=== PATIENT | female | born 1995 | race Caucasian/White ===

== ENCOUNTER 2019-11-25 02:18 | Observation (INO) ==
[2019-11-25 02:57] LABS: Basophils # (auto) 0.02 K/uL (0-0.2); Basophils % (auto) 0.2 %; Eosinophils # (auto) 0.23 K/uL (0-0.5); Eosinophils % (auto) 1.9 %; Hemoglobin 11.4 g/dL (12.0-16.0); Immature Granulocytes # (auto) 0.08 K/uL (0.00-0.02); Immature Granulocytes % (auto) 0.7 %; Lymphocytes # (auto) 2.04 K/uL (1.2-3.4); Lymphocytes % (auto) 17.1 %; Mean Corpuscular Hemoglobin 30.8 pg (25-34); Mean Corpuscular Hgb Conc 32.6 g/dL (32-36); Mean Corpuscular Volume 94.6 fL (80-100); Mean Platelet Volume 10.3 fL (7.4-10.4); Monocytes # (auto) 0.62 K/uL (0.11-0.59); Monocytes % (auto) 5.2 %; Neutrophils # (auto) 8.94 K/uL (1.4-6.5); Neutrophils % (auto) 74.9 %; Platelet Count 332 K/uL (130-400); RDW Coefficient of Variation 13.1 % (11.5-14.5); RDW Standard Deviation 45.3 fL (36.4-46.3); White Blood Count 11.93 K/uL (4.8-10.8)
[2019-11-25 03:13] LABS: Alanine Aminotransferase 23 U/L (12-78); Albumin Level 3.2 gm/dl (3.4-5.0); Aspartate Aminotransferase 14 U/L (15-37); BUN Creatinine Ratio 29.5 (10-20); Blood Urea Nitrogen 21 mg/dl (7-18); Calcium 8.2 mg/dl (8.5-10.1); Carbon Dioxide 27 mmol/L (21-32); Chloride 115 mmol/L (98-107); Creatinine Clr Calc Pharmacy 111.8 ml/min; Est GFR (African American) 134.9; Est GFR (Non-African American) 116.4; Glucose 97 mg/dl (70-99); Potassium 3.7 mmol/L (3.5-5.1); Sodium 146 mmol/L (136-145)
[2019-11-25 03:16] LABS: Alkaline Phosphatase 116 U/L (45-117); Bilirubin,Total < 0.1 mg/dl (0.2-1); Globulin 3.2 gm/dl (2.5-4.0); Total Protein 6.4 gm/dl (6.4-8.2)
[2019-11-25 03:20] LABS: Pregnancy Test, Urine Negative (Negative)
[2019-11-25 03:36] LABS: Amphetamines+Metham, Urine Neg (Neg); Barbiturates, Urine Neg (Neg); Benzodiazepine, Urine Neg (Neg); Cocaine, Urine Neg (Neg); MDMA (Ecstacy), Urine Neg (Neg); Methadone, Urine Neg (Neg); Opiate, Urine Neg (Neg); Phencyclidine, Urine Neg (Neg)
--- NOTE | 2019-11-25 03:52 | Emergency Department Note ---
Impression & Plan Drug overdose ED Provider Note NAME: KARLA VELA AGE: 24 SEX: F ARRIVES VIA: Ambulance INFORMANT: EMS; patient's father ED PROVIDER(S): Roberta Caputo DO CHIEF COMPLAINT: Overdose PLAN: Disposition: Admitted to the [facility] service Condition: Stable MEDICAL DECISION MAKING: This is a 24-year-old female patient found unresponsive with snoring respirations on the side of the road. Police administered intranasal Narcan and the patient became more responsive. She had urinated herself. The patient was transported here by EMS. Patient's father arrived here in the emergency department stating that he knew that the patient had been abusing Adderall but was unaware that she was abusing other drugs. 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 However, urine tox screen was negative except for marijuana. After multiple attempts, the patient would not wake up enough to remain coherent for any type of discussion or potential discharge. The case was discussed with the [facility] and they will evaluate for further management. Triage Nursing notes reviewed and agree them. Additional history obtained from EMS and the patient's father Prior medical records reviewed Vital Signs: reviewed and unremarkable Differential diagnosis: Seizure, drug overdose, alcohol intoxication, suicide attempt Diagnostics interpreted by me: ECG: Sinus bradycardia at 57. There is no signs of ischemia. There is no ST segment elevation. There is no ectopy Cardiac Monitoring: Normal sinus rhythm at 52 Laboratory studies: See below HPI: 24/F arrives for evaluation of unresponsiveness. This is a 24-year-old female patient who was found in her vehicle unresponsive by police. She was found to have snoring respirations. They administered intranasal Narcan and she became more responsive and combative. She had urinated herself. Upon EMS arrival, she was barely able to communicate. Police noted tramadol, Ambien, gabapentin, baclofen, and Excedrin in her possession. The patient remained hemodynamically stable for transport for EMS. 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 He also told me that approximately 1 week ago she began to hang out with a girl whose boyfriend recently from an overdose of fentanyl. ROS: Unable to obtain because the patient was incoherent PAST MEDICAL HISTORY:ADHD, depression, GERD PAST SURGICAL HISTORY:None FAMILY HISTORY:Unknown-the patient was unable to answer questions as she was not coherent. SOCIAL HISTORY:Unable to obtain-the patient was not coherent enough to answer questions. 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 HOME MEDICATIONS:See list ALLERGIES:None VITALS:See Below PHYSICAL EXAMINATION: General: The patient was agitated with any type of communication or touch on exam but would fall asleep quickly if left alone. HEENT: Head - normocephalic and atraumatic Pupils are equal, round, and reactive to light. Extraocular eye muscles are intact, and sclera are anicteric. Nose - moist nasal mucosa without discharge. Mouth - moist buccal mucosa. Oropharynx is nonerythematous and there is no tonsillar exudate or edema noted. Neck: Supple; no cervical lymphadenopathy or thyromegaly Heart: Regular rate and rhythm. There is a normal S1 and S2 with no murmurs, clicks, or gallops appreciated. Lungs: Clear to auscultation bilaterally with no wheezes, rales, or rhonchi. Abdomen: Soft, completely nontender, nondistended, with good bowel sounds. There are no palpable pulsatile masses or hepatosplenomegaly. There is no guarding, rigidity, or rebound noted. Extremities: No evidence of cyanosis, clubbing, or edema. There are easily palpable peripheral pulses. Skin: warm and dry with good turgor and no rashes. ED COURSE: The patient was evaluated and A2. A complete history and physical was performed. An order was placed for continuous cardiac monitoring. The patient was in a normal sinus rhythm. A twelve-lead EKG was obtained. Labs were drawn as above. 0340: I spoke with the patient's father at the bedside. We attempted to wake the patient again and were unsuccessful keeping her coherent enough to answer questions appropriately. Roberta Caputo, Past Med/Surg History Social History Smoking Status: Current every day smoker Feels Safe at Home: Yes Allergies Allergies Allergy/AdvReac Type Severity Reaction Status Date / Time No Known Allergies Allergy Unverified 09/29/18 09:15 Home Meds Home Medications Medication Instructions Recorded Confirmed drospirenone-ethinyl estradiol 1 tab PO QAM 09/29/18 11/25/19 [Gianvi (28)] dextroamphetamine-amphetamine 20 mg PO TID 11/25/19 11/25/19 [Adderall] escitalopram oxalate [Lexapro] 10 mg PO UD 11/25/19 11/25/19 omeprazole 40 mg PO DAILY 11/25/19 11/25/19 vilazodone [Viibryd] 20 mg PO BID 11/25/19 11/25/19 Results & Data (ED) Vital Signs Vital Signs - 24 hr 11/25/19 02:06 11/25/19 02:29 11/25/19 04:06 Temperature 36.6 C Temperature Source Oral Pulse Rate 77 Pulse Rate [Apical] 52 L Pulse Rhythm Regular Pulse Rhythm [Apical] Regular Pulse Strength Normal Pulse Strength [Apical] Normal Respiratory Rate 18 18 Respiratory Effort / Characteristics Non-Labored Respiratory Depth Normal Respiratory Pattern Regular Blood Pressure 127/92 Blood Pressure [Right Arm] 127/78 Blood Pressure Mean 103 Blood Pressure Mean [Right Arm] 94 Blood Pressure Position Lying Blood Pressure Position [Right Arm] Lying Pulse Oximetry 99 99 97 Oxygen Delivery Method Room Air Room Air Room Air Sepsis Recent Fever Within 48 Hours No Sepsis New/Unexplained Change in Mental Status No Sepsis Action Taken by Nursing No Action Required Laboratory Data Result diagrams: 11/25/19 02:45 11/25/19 02:45 Lab Results 11/25/19 11/25/19 11/25/19 Range/Units 02:40 02:40 02:45 WBC 11.93 H (4.8-10.8) K/uL RBC 3.70 L (4.2-5.4) M/uL Hgb 11.4 L (12.0-16.0) g/dL Hct 35.0 L (37-47) % MCV 94.6 (80-100) fL MCH 30.8 (25-34) pg MCHC 32.6 (32-36) g/dL RDW Std Deviation 45.3 (36.4-46.3) fL RDW Coeff of Kavita 13.1 (11.5-14.5) % Plt Count 332 (130-400) K/uL MPV 10.3 (7.4-10.4) fL Immature Gran % (Auto) 0.7 % Neut % (Auto) 74.9 % Lymph % (Auto) 17.1 % Limestone % (Auto) 5.2 % Eos % (Auto) 1.9 % Baso % (Auto) 0.2 % Neut # (Auto) 8.94 H (1.4-6.5) K/uL Lymph # (Auto) 2.04 (1.2-3.4) K/uL Limestone # (Auto) 0.62 H (0.11-0.59) K/uL Eos # (Auto) 0.23 (0-0.5) K/uL Baso # (Auto) 0.02 (0-0.2) K/uL Immature Gran # (Auto) 0.08 H (0.00-0.02) K/uL Sodium (136-145) mmol/L Potassium (3.5-5.1) mmol/L Chloride (98-107) mmol/L Carbon Dioxide (21-32) mmol/L Anion Gap (3-11) BUN (7-18) mg/dl Creatinine (0.6-1.2) mg/dl Est Cr Clr Drug Dosing ml/min Est GFR ( Amer) Est GFR (Non-Af Amer) BUN/Creatinine Ratio (10-20) Glucose (70-99) mg/dl Calcium (8.5-10.1) mg/dl Magnesium (1.8-2.4) mg/dl Total Bilirubin (0.2-1) mg/dl AST (15-37) U/L ALT (12-78) U/L Alkaline Phosphatase (45-117) U/L Total Protein (6.4-8.2) gm/dl Albumin (3.4-5.0) gm/dl Globulin (2.5-4.0) gm/dl Albumin/Globulin Ratio (0.9-2) TSH (0.300-4.500) uIu/ml Free T4 (0.8-1.6) ng/dl Urine Test Negative (Negative) Salicylates (2.8-20) mg/dl Urine Opiates Screen Neg (Neg) Ur Methadone, Qual Neg (Neg) Acetaminophen (10-30) ug/ml Urine Barbiturates Neg (Neg) Ur Phencyclidine (PCP) Neg (Neg) U Amphetamin/Meth Scrn Neg (Neg) MDMA (Ecstasy) Screen Neg (Neg) U Benzodiazepines Scrn Neg (Neg) Ur Cocaine Metabolite Neg (Neg) U Marijuana (THC) Screen Pos H (Neg) Ethyl Alcohol mg/dL (0-3) mg/dl 11/25/19 11/25/19 11/25/19 Range/Units 02:45 02:46 04:16 WBC (4.8-10.8) K/uL RBC (4.2-5.4) M/uL Hgb (12.0-16.0) g/dL Hct (37-47) % MCV (80-100) fL MCH (25-34) pg MCHC (32-36) g/dL RDW Std Deviation (36.4-46.3) fL RDW Coeff of Kavita (11.5-14.5) % Plt Count (130-400) K/uL MPV (7.4-10.4) fL Immature Gran % (Auto) % Neut % (Auto) % Lymph % (Auto) % [place] % (Auto) % Eos % (Auto) % Baso % (Auto) % Neut # (Auto) (1.4-6.5) K/uL Lymph # (Auto) (1.2-3.4) K/uL Limestone # (Auto) (0.11-0.59) K/uL Eos # (Auto) (0-0.5) K/uL Baso # (Auto) (0-0.2) K/uL Immature Gran # (Auto) (0.00-0.02) K/uL Sodium 146 H (136-145) mmol/L Potassium 3.7 (3.5-5.1) mmol/L Chloride 115 H (98-107) mmol/L Carbon Dioxide 27 (21-32) mmol/L Anion Gap 4.0 (3-11) BUN 21 H (7-18) mg/dl Creatinine 0.72 (0.6-1.2) mg/dl Est Cr Clr Drug Dosing 111.8 ml/min Est GFR ( Amer) 134.9 Est GFR (Non-Af Amer) 116.4 BUN/Creatinine Ratio 29.5 H (10-20) Glucose 97 (70-99) mg/dl Calcium 8.2 L (8.5-10.1) mg/dl Magnesium 2.1 (1.8-2.4) mg/dl Total Bilirubin < 0.1 L (0.2-1) mg/dl AST 14 L (15-37) U/L ALT 23 (12-78) U/L Alkaline Phosphatase 116 (45-117) U/L Total Protein 6.4 (6.4-8.2) gm/dl Albumin 3.2 L (3.4-5.0) gm/dl Globulin 3.2 (2.5-4.0) gm/dl Albumin/Globulin Ratio 1.0 (0.9-2) TSH 0.112 L (0.300-4.500) uIu/ml Free T4 0.70 L (0.8-1.6) ng/dl Urine Test (Negative) Salicylates < 1.7 L (2.8-20) mg/dl Urine Opiates Screen (Neg) Ur Methadone, Qual (Neg) Acetaminophen < 2 L (10-30) ug/ml Urine Barbiturates (Neg) Ur Phencyclidine (PCP) (Neg) U Amphetamin/Meth Scrn (Neg) MDMA (Ecstasy) Screen (Neg) U Benzodiazepines Scrn (Neg) Ur Cocaine Metabolite (Neg) U Marijuana (THC) Screen (Neg) Ethyl Alcohol mg/dL < 3.0 (0-3) mg/dl Administered Medications Parenteral Electrolytes (Normosol-R) 1,000 mls @ 999 mls/hr IV .Q1H1M ONE Stop: 11/25/19 06:17 Last Admin: 11/25/19 05:30 Dose: 999 mls/hr Documented by: [id number] Discontinued Medications Naloxone HCl (Naloxone Hcl 0.4 Mg/1 Ml Vial/Carp) 0.4 mg IV NOW STA Stop: 11/25/19 05:17 Last Admin: 11/25/19 05:30 Dose: 0.4 mg Documented by: [id number] Discharge Plan Visit Data Chief Complaint: Overdose (Accidental) Stated Complaint: OVERDOSE ED Provider: Roberta Caputo Discharge Problem: Drug overdose Forms Stand Alone Forms: My [facility] Prescriptions Prescriptions: No Action drospirenone-ethinyl estradiol [Gianvi (28)] 3-0.02 mg Tablet 1 tab PO QAM RF: 0 dextroamphetamine-amphetamine [Adderall] 20 mg tablet 20 mg PO TID RF: 0 Viibryd 20 mg tablet 20 mg PO BID RF: 0 omeprazole 40 mg capsule,delayed release(DR/EC) 40 mg PO DAILY RF: 0 escitalopram oxalate [Lexapro] 10 mg tablet 10 mg PO UD RF: 0 Discharge Problem: Drug overdose Qualifiers: Encounter type: initial encounter Injury intent: undetermined intent Qualified Code(s): T50.904A - Poisoning by unspecified drugs, medicaments and biological substances, undetermined, initial encounter
[2019-11-25] MEDS ORDERED: NALOXONE HCL 0.4 MG/1 ML VIAL/CARP IV STA (05:16)
[2019-11-25] MEDS ORDERED: NORMOSOL-R 1,000 ML IV ONE ×2 (05:17→09:00)
[2019-11-25 05:22] LABS: Acetaminophen < 2 ug/ml (10-30)
[2019-11-25 05:23] LABS: Salicylate < 1.7 mg/dl (2.8-20)
[2019-11-25 05:24] LABS: Magnesium 2.1 mg/dl (1.8-2.4); Thyroid Stimulating Hormone 0.112 uIu/ml (0.300-4.500)
--- NOTE | 2019-11-25 05:28 | History & Physical Report ---
Date of Service November 25, 2019 Assessment & Plan (1) Drug overdose: Likely polysubstance Possible medical diversion (neuropsychotropic substances not in patient's home medication list found in patient possession) ADD as per records anxiety/mood disorder chronic anemia, hemoglobin at baseline past tobacco abuse OBS Medical telemetry Appropriate to hold patient's neuropsychotropic medications for now until patient more awake and able to provide more information. May benefit from Psych evaluation for probable substance abuse. DVT prophylaxis. SCDs Full code Patient's father requesting updates from providers. Mr. Tuan Brown, contact #[phone]. Text document was generated using [employer] recognition software. It may contain grammatical or spelling errors. Kindly contact undersigned for clarification of any documentation item in question. History of Present Illness Chief Complaint: Unresponsiveness as per records Primary Care Provider: Dr. Adams History obtained from family, and records. Limited history from patient secondary to unresponsive state. Medical history significant for ADD as per records, anxiety/mood disorder, GERD, chronic anemia (baseline hemoglobin 10-11), past tobacco abuse. Patient found by police inside her vehicle at the side of the road last night. Noted to have snoring respiration. Patient became more responsive and combative following intranasal Narcan administration. Police noted tramadol, Ambien, gabapentin, baclofen, and Excedrin in patient possession as per records. 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 Patient's boyfriend attests that patient will take more than prescribed doses of Adderall to keep up with stress. Routine outpatient COVID test last week as part of [employer] employment negative as per patient boyfriend. Family doubts suicidal intent. Medical History as above Surgical History : None Family History : Breast cancer, cervical cancer Personal/Social history : Past tobacco abuse, occasional EtOH intake, G[employer]VEL [employer]HER Allergies Allergy/AdvReac Type Severity Reaction Status Date / Time No Known Allergies Allergy Unverified 09/29/18 09:15 Home Medications Home Medications Medication Instructions Recorded Confirmed Type drospirenone-ethinyl estradiol 1 tab PO QAM 09/29/18 11/25/19 History [Gianvi (28)] dextroamphetamine-amphetamine 20 mg PO TID 11/25/19 11/25/19 History [Adderall] escitalopram oxalate [Lexapro] 10 mg PO UD 11/25/19 11/25/19 History omeprazole 40 mg PO DAILY 11/25/19 11/25/19 History vilazodone [Viibryd] 20 mg PO BID 11/25/19 11/25/19 History Past Med/Surg History Social History Smoking Status: Current every day smoker Preferred Language: Pashto Communication Ability: Impaired Communication Ability Comment: Impaired at this time due to side effects of overdose Needleworker Required: No Review of Systems Review of Systems: Could not be reliably obtained Physical Exam Physical Exam: GENERAL: Obtunded , no respiratory distress SKIN: Normal color, warm HEENT: [place] palpebral conjunctivae, no ptosis, dry buccal mucosa NECK : Supple, no tenderness CHEST : CTA, no tenderness HEART : Bradycardic, no obvious murmurs ABDOMEN: Soft, nontender EXTREMITIES : No LE swelling/tenderness, no other conspicuous deformities noted NEUROLOGIC : Obtunded, miotic pupils, no facial asymmetry, no other gross focality Results & Data Results & Data ([facility]) Vital Signs (Past 12 Hours) Vital Signs Temp Pulse Pulse Resp BP BP Pulse Ox 11/25/19 04:06 52 L 18 127/78 97 11/25/19 02:29 99 11/25/19 02:06 36.6 C 77 18 127/92 99 Laboratory Results Laboratory Results WBC 11.93 K/uL (4.8-10.8) H 11/25/19 02:45 RBC 3.70 M/uL (4.2-5.4) L 11/25/19 02:45 Hgb 11.4 g/dL (12.0-16.0) L 11/25/19 02:45 Hct 35.0 % (37-47) L 11/25/19 02:45 MCV 94.6 fL (80-100) 11/25/19 02:45 MCH 30.8 pg (25-34) 11/25/19 02:45 MCHC 32.6 g/dL (32-36) 11/25/19 02:45 RDW Std Deviation 45.3 fL (36.4-46.3) 11/25/19 02:45 RDW Coeff of Kavita 13.1 % (11.5-14.5) 11/25/19 02:45 Plt Count 332 K/uL (130-400) 11/25/19 02:45 MPV 10.3 fL (7.4-10.4) 11/25/19 02:45 Immature Gran % (Auto) 0.7 % 11/25/19 02:45 Neut % (Auto) 74.9 % 11/25/19 02:45 Lymph % (Auto) 17.1 % 11/25/19 02:45 Lyman % (Auto) 5.2 % 11/25/19 02:45 Eos % (Auto) 1.9 % 11/25/19 02:45 Baso % (Auto) 0.2 % 11/25/19 02:45 Neut # (Auto) 8.94 K/uL (1.4-6.5) H 11/25/19 02:45 Lymph # (Auto) 2.04 K/uL (1.2-3.4) 11/25/19 02:45 [place]yman # (Auto) 0.62 K/uL (0.11-0.59) H 11/25/19 02:45 Eos # (Auto) 0.23 K/uL (0-0.5) 11/25/19 02:45 Baso # (Auto) 0.02 K/uL (0-0.2) 11/25/19 02:45 Immature Gran # (Auto) 0.08 K/uL (0.00-0.02) H 11/25/19 02:45 Sodium 146 mmol/L (136-145) H 11/25/19 02:45 Potassium 3.7 mmol/L (3.5-5.1) 11/25/19 02:45 Chloride 115 mmol/L (98-107) H 11/25/19 02:45 Carbon Dioxide 27 mmol/L (21-32) 11/25/19 02:45 Anion Gap 4.0 (3-11) 11/25/19 02:45 BUN 21 mg/dl (7-18) H 11/25/19 02:45 Creatinine 0.72 mg/dl (0.6-1.2) 11/25/19 02:45 Est Cr Clr Drug Dosing 111.8 ml/min 11/25/19 02:45 Est GFR ( Amer) 134.9 11/25/19 02:45 Est GFR (Non-Af Amer) 116.4 11/25/19 02:45 BUN/Creatinine Ratio 29.5 (10-20) H 11/25/19 02:45 Glucose 97 mg/dl (70-99) 11/25/19 02:45 Calcium 8.2 mg/dl (8.5-10.1) L 11/25/19 02:45 Magnesium 2.1 mg/dl (1.8-2.4) 11/25/19 02:45 Total Bilirubin < 0.1 mg/dl (0.2-1) L 11/25/19 02:45 AST 14 U/L (15-37) L 11/25/19 02:45 ALT 23 U/L (12-78) 11/25/19 02:45 Alkaline Phosphatase 116 U/L (45-117) 11/25/19 02:45 Total Protein 6.4 gm/dl (6.4-8.2) 11/25/19 02:45 Albumin 3.2 gm/dl (3.4-5.0) L 11/25/19 02:45 Globulin 3.2 gm/dl (2.5-4.0) 11/25/19 02:45 Albumin/Globulin Ratio 1.0 (0.9-2) 11/25/19 02:45 TSH 0.112 uIu/ml (0.300-4.500) L 11/25/19 02:45 Urine Test Negative (Negative) 11/25/19 02:40 Salicylates < 1.7 mg/dl (2.8-20) L 11/25/19 04:16 Urine Opiates Screen Neg (Neg) 11/25/19 02:40 Ur Methadone, Qual Neg (Neg) 11/25/19 02:40 Acetaminophen < 2 ug/ml (10-30) L 11/25/19 04:16 Urine Barbiturates Neg (Neg) 11/25/19 02:40 Ur Phencyclidine (PCP) Neg (Neg) 11/25/19 02:40 U Amphetamin/Meth Scrn Neg (Neg) 11/25/19 02:40 MDMA (Ecstasy) Screen Neg (Neg) 11/25/19 02:40 U Benzodiazepines Scrn Neg (Neg) 11/25/19 02:40 Ur Cocaine Metabolite Neg (Neg) 08/14/20 02:40 U Marijuana (THC) Screen Pos (Neg) H 11/25/19 02:40 Ethyl Alcohol mg/dL < 3.0 mg/dl (0-3) 11/25/19 02:46 Diagnostic Findings EKG as per my interpretation : rate 55, sinus bradycardia, normal axis, T wave abnormalities T wave inversion septal leads (1) Drug overdose Encounter type: initial encounter Injury intent: undetermined intent Qualified Code(s): T50.904A - Poisoning by unspecified drugs, medicaments and biological substances, undetermined, initial encounter
[2019-11-25] MEDS ORDERED: PROMETHAZINE HCL 12.5 MG in SODIUM CHLORIDE 0.9% 50 ML IV PRN (08:51)
[2019-11-25] MEDS: PANTOprazole 40 MG TAB PO SCH (10:40)
--- NOTE | 2019-11-25 13:04 | Psychiatric Consultation ---
Date of Consultation November 25, 2019 Impression / Recommendations Impression Dr. Jone Nguyen was directly involved in review and discussion of the patient's case and participated in medical decision making regarding treatment recommendations. RECOMMENDATIONS: 11/24 - Psychiatric consultation requested by hospitalist team to evaluate patient following an overdose. Pt with reported history of depression and ADHD. - History is provided by both patient and boyfriend, with patient's permission. Both indicate that patient did intentionally take an unknown amount of Baclofen, Neurontin, and Percocet, but admit it was with the intent to relax. Pt denies that the medications were taken with the intent of self-harm or to end her life. Pt is rather forthcoming with information regarding her presentation, and therefore does not give the impression that she would be falsifying information about the intent of her overdose. - Current psychotropic medications reviewed. Agree with the couple's decision to discontinue Adderall, especially in the setting of her recent overdoses, at least until this can be reviewed in greater detail with her outpatient psychiatric prescriber. We discussed that Viibryd is non-formulary, but is reasonable for patient to resume the medication at its current dose of 20mg when she is discharge. In light of overdose, will defer any decisions about titrating the dose to patient's outpatient psychiatrist. - Will attempt to contact [facility] [place] to confirm next psychiatric follow-up appointment. Will also fax record of this consult in order to provide coordination of care, as well as documentation of concerns for misuse/abuse of Adderall in addition to other substances. Pt is aware of this and verbalized willingness to sign an KERWIN. - Given patient is denying SI and stating she did not take the medications with the intent to end her life, there is not information to suggest inpatient psychiatric treatment is indicated. Pt denies need for voluntary admission. Agree with discharge home when medically cleared, with continued outpatient psychiatric follow-up. Psych History Identifying Data 24-year-old female admitted medically on 11/25/2019 after presenting to the ED s/p overdose. Pt was reportedly found by police to be unresponsive in her car. Pt did admit to taking neuropsychotropic substances that are not prescribed to her. Psychiatric consultation requested to evaluate patient for depression, ADHD, and concern for overdose. Chief Complaint "I guess...after work last night I took pills. I don't remember much past that." History of Present Illness Janie Brown is a 24-year-old female admitted medically on 11/25/2019 after presenting to the ED s/p overdose. Pt admitted to taking an unknown amount of neuropsychotropic substances and was found by police on the side of the road and brought to the ED. Pt has a reported history of ADHD and depression. Psychiatric consultation was requested by the hospitalist team based on this history as well as overdose. Pt's case was reviewed and discussed during morning report with psychiatric nurse liaison and supervising psychiatrist. Pt was found in her room, laying in bed with boyfriend, Kyree, at bedside. Pt verbalizes desire for boyfriend to remain in the room and permits him to contribute to conversation. Pt states "I guess...after work last night I took pills. I don't remember much past that." Pt states that she and her boyfriend have already discussed the situation, and have agreed that the patient will not continue to use her Adderall and they are requesting it no longer be prescribed. Patient does state "my 'sassy pill' is super important though. I really want to keep taking the Viibryd." Pt admits she does not recall many of the events last evening, but states she was able to determine the pills she was given. Pt states she took an unknown amount of Percocet, Baclofen and Neurontin. Pt states she has been overwhelmed with stress at work and took the pills with the thought it might help her relax after "a 16 hour shift." Pt states, "you write this down, you write this down, and you write this down. I was not suicidal. I did not do this to hurt myself." Pt denies recent SI, admitting she has struggled with thoughts in the past but has had no suicide attempts or previous psychiatric hospitalizations. Pt does not feel that inpatient psychiatric admission is necessary, and is agreeable with continuing to follow with her outpatient psychiatrist at [facility] [place] in [place]. Pt is interested in referrals for therapy as well. Pt denied other needs or concerns from our service at this time. Past Psychiatric History Current Psychiatric Diagnosis: Depression, Anxiety, ADHD Outpatient Services: Psychiatrist - [facility] [place] in [place] Previous Psych Admissions: Denied History of Previous Suicide Attempt: No Past Medication Trials: Lists includes, but not limited to: 1. Ritalin 2. Adderall 3. Lexapro 4. Prozac 5. Viibryd 6. ?Possibly Paxil Allergies Allergy/AdvReac Type Severity Reaction Status Date / Time No Known Allergies Allergy Unverified 09/29/18 09:15 Home Medications Home Medications Medication Instructions Recorded Confirmed Type drospirenone-ethinyl estradiol 1 tab PO QAM 09/29/18 11/25/19 History [Gianvi (27)] dextroamphetamine-amphetamine 20 mg PO TID 11/25/19 11/25/19 History [Adderall] escitalopram oxalate [Lexapro] 10 mg PO UD 11/25/19 11/25/19 History omeprazole 40 mg PO DAILY 11/25/19 11/25/19 History vilazodone [Viibryd] 20 mg PO BID 11/25/19 11/25/19 History Substance Abuse History Pt admits to occasionally vaping nicotine. She reports "rare" alcohol use. Pt admits to daily marijuana use. She denies history of experimentation with other illicit substances or prior history of intentional overdose to get high. 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 Other Number Of Children: None Psychological Trauma History Comment: Denied Patient History Social History Smoking Status: Current every day smoker Preferred Language: [place] Communication Ability: Impaired Communication Ability Comment: Impaired at this time due to side effects of overdose Hand Stapler Required: No Physical Exam Psychiatric: Orientation: alert, oriented x 3 and cooperative Apperance: appropriately dressed, + disheveled and appeared stated age female of healthy-appearing weight. Pt is appropriately dressed for setting and circumstance, in paper scrubs. Hair appearing somewhat unkempt. Level of hygiene and hydration appears adequate. Eye Contact: good eye contact Motor Behavior: no abnormal motor movements (observed while laying in bed) and + psychomotor agitation (appearing somewhat restless ) Speech: normal rate/rhythm/volume of speech Affect: + anxious affect and + tearful affect (only intermittently ) Mood: + anxious mood ("I've been more stressed, extra irritable"); no depressed mood Thought Process: goal directed thought process, clear/coherent thought process and thought association intact Thought Content: reality based without delusions; not paranoid, no hopelessness and no worthlessness Suicidal Thoughts: denies suicidal thoughts, denies suicidal plan and denies suicidal intent Pt is adamant that she did not take the excessive medications with the intent to end her life Homicidal Thoughts: denies homicidal thoughts Hallucinations: no auditory hallucinations and no visual hallucinations Cognition: attention grossly intact and language grossly intact; + recent memory not intact (recalls little of the events after taking the pills last evening) Estimated Intelligence: consistent with education level Insight: + fair insight Judgement: + fair judgement Vital Signs (Past 24 Hours): Last Vital Signs Temp 36.8 C 11/25/19 12:01 Pulse 52 L 11/25/19 12:01 Resp 16 11/25/19 12:01 BP 103/67 11/25/19 12:01 Pulse Ox 100 11/25/19 12:01 Review of Systems Constitutional: denied Cardiovascular: denied Respiratory: denied Gastrointestinal: denied Neurological: denied Psychiatric: denies symptoms other than stated above Total of at least 10 systems reviewed, pertinent positives as above and in HPI. Results & Data (PSY) Medications Administered Parenteral Electrolytes (Normosol-R) 1,000 mls @ 80 mls/hr IV .[id number] ONE Stop: 11/25/19 21:29 Last Admin: 11/25/19 11:38 Dose: 80 mls/hr Documented by: [id number] Pantoprazole Sodium (Pantoprazole 40 Mg Tab) 40 mg PO DAILY GILMA Stop: 12/25/19 08:59 Last Admin: 11/25/19 10:40 Dose: Not Given Documented by: [id number] Coding Level of Care Code 98894 [facility] Intl Hosp Care Lvl 3
[2019-11-25 13:57] LABS: Appearance Urine Clear (Clear); Bilirubin Urine Negative (Negative); Blood Urine Trace (Negative); Color Urine Yellow; Glucose Urine UA Negative (Negative); Ketones Urine Negative (Negative); Leukocyte Esterase Urine Negative (Negative); Nitrite Urine Negative (Negative); Protein Urine Negative (Negative); Specific Gravity Urine 1.015 (1.000-1.030); Urobilinogen Urine Negative (Negative); pH Urine 7.5 (4.5-7.5)
[2019-11-25 14:11] LABS: Bacteria Urine Negative (Negative); Epithelial Cell Urine >30 /lpf (0-5)
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
--- NOTE | 2019-11-25 22:43 | Electrocardiogram Report ---
Test Reason : Blood Pressure : / mmHG Vent. Rate : 057 BPM Atrial Rate : 057 BPM P-R Int : 148 ms QRS Dur : 096 ms QT Int : 460 ms P-R-T Axes : 037 057 039 degrees QTc Int : 447 ms Sinus bradycardia with sinus arrhythmia Otherwise normal ECG No previous ECGs available Confirmed by Vince Villeda ([id number] on 11/25/2019 10:43:12 PM Referred By: REFERRED SELF Confirmed By:Vince Villeda
[2019-11-26] MEDS: ACETAMINOPHEN 325 MG TAB PO PRN ×2 (03:33→08:23)
[2019-11-26 07:27] VITALS: TEMP 98.2
[2019-11-26 07:43] LABS: Basophils # (auto) 0.03 K/uL (0-0.2); Basophils % (auto) 0.4 %; Eosinophils % (auto) 2.7 %; Hematocrit (blood only) 33.1 % (37-47); Hemoglobin 10.9 g/dL (12.0-16.0); Immature Granulocytes # (auto) 0.02 K/uL (0.00-0.02); Immature Granulocytes % (auto) 0.3 %; Lymphocytes # (auto) 2.93 K/uL (1.2-3.4); Lymphocytes % (auto) 39.1 %; Mean Corpuscular Hemoglobin 30.7 pg (25-34); Mean Corpuscular Hgb Conc 32.9 g/dL (32-36); Mean Corpuscular Volume 93.2 fL (80-100); Monocytes # (auto) 0.53 K/uL (0.11-0.59); Monocytes % (auto) 7.1 %; Neutrophils # (auto) 3.78 K/uL (1.4-6.5); Neutrophils % (auto) 50.4 %; Platelet Count 321 K/uL (130-400); RDW Coefficient of Variation 13.4 % (11.5-14.5); RDW Standard Deviation 45.6 fL (36.4-46.3); Red Blood Count 3.55 M/uL (4.2-5.4); White Blood Count 7.49 K/uL (4.8-10.8)
[2019-11-26] MEDS: PANTOprazole 40 MG TAB PO SCH (08:24)
[2019-11-26 08:32] LABS: BUN Creatinine Ratio 15.3 (10-20); Calcium 8.9 mg/dl (8.5-10.1); Creatinine Clr Calc Pharmacy 136.5 ml/min; Est GFR (African American) 147.6; Est GFR (Non-African American) 127.4; Magnesium 2.4 mg/dl (1.8-2.4); Phosphorus 3.9 mg/dl (2.5-4.9); Potassium 3.7 mmol/L (3.5-5.1)
[2019-11-26 11:34] VITALS: O2SAT 98
--- NOTE | 2019-11-26 12:00 | Hospitalist Progress Note ---
Date of Service November 26, 2019 Assessment & Plan (1) Drug overdose: Likely polysubstance drug abuse Possible medical diversion (neuropsychotropic substances not in patient's home medication list found in patient possession) Pt states that she took medications from her colleague (baclofen, Percocet, Neurontin), and never did anything like this before. States that she was really tired and stressed, after working 16-hour shift and wanted to "relax". She states that she did not realize that it would have effect on her like that. Adamantly denies any suicidal ideations. ADD as per records anxiety/depression/mood disorder Patient's neuropsychotropic medications held on admission Psych evaluation for probable substance abuse, ADD, Anxiety/Depression Psychiatry recommends to stop Adderall, patient may resume her home Viibronwyn, r ecommend outpatient follow-up with her psychiatrist, no need for inpatient psych Medical telemetry - shows sinus arrhythmia, per patient, this is chronic and followed by her PCP, recommend to follow-up with PCP within 1 week Chronic anemia, hemoglobin at baseline past tobacco abuse DVT prophylaxis. SCDs Full code Patient's father , Mr. Tuan Brown, can be contacted at . Admission and Anticipated Discharge Date Admission Date: November 25, 2019 Subjective Patient is lying in bed, in no acute distress. Her boyfriend is at the bedside. Yesterday I discussed with her father at the bedside, today stressed to patient's boyfriend, to not drive and relax until she is seen by her PCP. Psychiatry evaluated patient yesterday, do not recommend inpatient psych, recommend outpatient psychiatry follow-up. Patient denies any suicidal ideations. Patient denies any fevers, chills, chest pain, shortness of breath, abdominal pain, nausea or vomiting. Patient feels well overall. She agrees to follow-up with her PCP prior to returning to work or driving. She also agrees to follow-up with her psychiatrist. Review of Systems Review of Systems: All systems reviewed & are unremarkable except as noted in HPI & below Constitutional: no fever and no chills Respiratory: no cough and no dyspnea Cardiovascular: no chest pain and no palpitations Gastrointestinal: no abdominal pain, no nausea and no vomiting Physical Exam Physical Exam: GENERAL: Young female, lying in bed, in no acute distress, talkative HEENT: Normocephalic, atraumatic, EOMI, PERRLA, [place] palpebral conjunctivae, no ptosis NECK : Supple, no tenderness CHEST : CTA, no tenderness, no wheezing, rhonchi or crackles HEART : appears regular w/ some ectopy, no obvious murmurs ABDOMEN: Soft, nontender, nondistended, positive bowel sounds EXTREMITIES : No LE swelling/tenderness, moves all 4 extremities spontaneously and without difficulty NEUROLOGIC : Alert and oriented x3, no facial asymmetry, speech fluent, answers questions appropriately, however does not know events prior to admission, moves all 4 extremities spontaneously, no sensory loss noted SKIN: Normal color, warm, dry Results & Data Results & Data ([facility]) Vital Signs (Past 12 Hours) Vital Signs Temp Pulse Pulse Pulse Resp BP BP 11/26/19 11:34 36.8 C 69 16 121/86 11/26/19 09:58 76 11/26/19 07:26 36.8 C 70 16 116/77 11/26/19 03:13 37.0 C 52 L 17 115/74 11/26/19 00:00 75 Pulse Ox 11/26/19 11:34 98 11/26/19 09:58 11/26/19 07:26 100 11/26/19 03:13 99 11/26/19 00:00 Laboratory Results 11/26/19 11/26/19 11/25/19 Range/Units 07:22 07:22 13:10 WBC 7.49 (4.8-10.8) K/uL RBC 3.55 L (4.2-5.4) M/uL Hgb 10.9 L (12.0-16.0) g/dL Hct 33.1 L (37-47) % MCV 93.2 (80-100) fL MCH 30.7 (25-34) pg MCHC 32.9 (32-36) g/dL RDW Std Deviation 45.6 (36.4-46.3) fL RDW Coeff of [place] 13.4 (11.5-14.5) % Plt Count 321 (130-400) K/uL MPV 10.0 (7.4-10.4) fL Immature Gran % (Auto) 0.3 % Neut % (Auto) 50.4 % Lymph % (Auto) 39.1 % [place] % (Auto) 7.1 % Eos % (Auto) 2.7 % Baso % (Auto) 0.4 % Neut # (Auto) 3.78 (1.4-6.5) K/uL Lymph # (Auto) 2.93 (1.2-3.4) K/uL [place] # (Auto) 0.53 (0.11-0.59) K/uL Eos # (Auto) 0.20 (0-0.5) K/uL Baso # (Auto) 0.03 (0-0.2) K/uL Immature Gran # (Auto) 0.02 (0.00-0.02) K/uL Sodium 141 (136-145) mmol/L Potassium 3.7 (3.5-5.1) mmol/L Chloride 108 H (98-107) mmol/L Carbon Dioxide 28 (21-32) mmol/L Anion Gap 5.0 (3-11) BUN 9 D (7-18) mg/dl Creatinine 0.59 L (0.6-1.2) mg/dl Est Cr Clr Drug Dosing 136.5 ml/min Est GFR ( Amer) 147.6 Est GFR (Non-Af Amer) 127.4 BUN/Creatinine Ratio 15.3 (10-20) Glucose 81 (70-99) mg/dl Calcium 8.9 (8.5-10.1) mg/dl Phosphorus 3.9 (2.5-4.9) mg/dl Magnesium 2.4 (1.8-2.4) mg/dl Urine Color Yellow Urine Appearance Clear (Clear) Urine pH 7.5 (4.5-7.5) Ur Specific [place] 1.015 (1.000-1.030) Urine Protein Negative (Negative) Urine Glucose (UA) Negative (Negative) Urine Ketones Negative (Negative) Urine Blood Trace H (Negative) Urine Nitrite Negative (Negative) Urine Bilirubin Negative (Negative) Urine Urobilinogen Negative (Negative) Ur Leukocyte Esterase Negative (Negative) Urine RBC 5-10 H (0-4) /hpf Urine WBC 5-10 H (0-5) /hpf Ur Epithelial Cells >30 H (0-5) /lpf Urine Bacteria Negative (Negative) Medications Administered Current Inpatient Medications Acetaminophen (Acetaminophen 325 Mg Tab) 650 mg PO Q4H PRN PRN Reason: Pain or Fever Stop: 12/25/19 08:50 Last Admin: 11/26/19 08:23 Dose: 650 mg Documented by: Promethazine HCl 12.5 mg/ (Sodium Chloride) 50.5 mls @ 202 mls/hr IV Q6H PRN PRN Reason: Nausea And Vomiting Stop: 12/25/19 08:50 Pantoprazole Sodium (Pantoprazole 40 Mg Tab) 40 mg PO DAILY GILMA Stop: 12/25/19 08:59 Last Admin: 11/26/19 08:24 Dose: 40 mg Documented by: (1) Drug overdose Encounter type: initial encounter Injury intent: undetermined intent Qualified Code(s): T50.904A - Poisoning by unspecified drugs, medicaments and biological substances, undetermined, initial encounter
[2019-11-26 12:15] VITALS: BP 116/77; PULSE 52
--- NOTE | 2019-11-26 12:27 | Discharge Summary ---
Date of Service November 26, 2019 Admission HPI Per Admitting Provider History obtained from family, and records. Limited history from patient secondary to unresponsive state. Medical history significant for ADD as per records, anxiety/mood disorder, GERD, chronic anemia (baseline hemoglobin 10-11), past tobacco abuse. Patient found by police inside her vehicle at the side of the road last night. Noted to have snoring respiration. Patient became more responsive and combative following intranasal Narcan administration. Police noted tramadol, Ambien, gabapentin, baclofen, and Excedrin in patient possession as per records. 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 Patient's boyfriend attests that patient will take more than prescribed doses of Adderall to keep up with stress. Routine outpatient COVID test last week as part of [employer] employment negative as per patient boyfriend. Family doubts suicidal intent. Medical History as above Surgical History : None Family History : Breast cancer, cervical cancer Personal/Social history : Past tobacco abuse, occasional EtOH intake, EXTR[employer] CIRCULATION SPECIALIST Admission Exam Per Admitting Provider GENERAL: Obtunded , no respiratory distress SKIN: Normal color, warm HEENT: [place] palpebral conjunctivae, no ptosis, dry buccal mucosa NECK : Supple, no tenderness CHEST : CTA, no tenderness HEART : Bradycardic, no obvious murmurs ABDOMEN: Soft, nontender EXTREMITIES : No LE swelling/tenderness, no other conspicuous deformities noted NEUROLOGIC : Obtunded, miotic pupils, no facial asymmetry, no other gross focality Principal Diagnosis Prescription medication overdose, unintentional Discharge Exam GENERAL: Young female, lying in bed, in no acute distress, talkative HEENT: Normocephalic, atraumatic, EOMI, PERRLA, [place] palpebral conjunctivae, no ptosis NECK : Supple, no tenderness CHEST : CTA, no tenderness, no wheezing, rhonchi or crackles HEART : appears regular w/ some ectopy, no obvious murmurs ABDOMEN: Soft, nontender, nondistended, positive bowel sounds EXTREMITIES : No LE swelling/tenderness, moves all 4 extremities spontaneously and without difficulty NEUROLOGIC : Alert and oriented x3, no facial asymmetry, speech fluent, answers questions appropriately, however does not know events prior to admission, moves all 4 extremities spontaneously, no sensory loss noted SKIN: Normal color, warm, dry Discharge Data Allergies Allergy/AdvReac Type Severity Reaction Status Date / Time No Known Allergies Allergy Unverified 09/29/18 09:15 Consultations 11/25/19 05:03 ED Decision to Admit Stat 11/25/19 07:49 Consult Psychiatry Routine 11/25/19 08:51 Consult Case Management - Discharge Planning Routine Hospital Course (1) Drug overdose: Drug overdose, unintentional likely polysubstance drug abuse Possible medical diversion (neuropsychotropic substances not in patient's home medication list found in patient possession) Pt states that she took medications from her colleague (baclofen, Percocet, Neurontin), and never did anything like this before. States that she was really tired and stressed, after working 16-hour shift and wanted to "relax". She states that she did not realize that it would have effect on her like that. Adamantly denies any suicidal ideations. ADD as per records anxiety/depression/mood disorder Patient's neuropsychotropic medications held on admission Psych evaluation for probable substance abuse, ADD, Anxiety/Depression Psychiatry recommends to stop Adderall, patient may resume her home Viibryd, rec ommend outpatient follow-up with her psychiatrist, no need for inpatient psych Medical telemetry - shows sinus arrhythmia, per patient, this is chronic and followed by her PCP, recommend to follow-up with PCP within 1 week Chronic anemia, hemoglobin at baseline Total Time Total Time Spent Total Time Spent (In Minutes): 40 Total Time Includes: Examination of the Patient, Discharge Planning, Medication Reconciliation and Communication With Other Providers Discharge Plan Discharge Items Patient Disposition: Home - Self-Care Reason For Visit: DRUG OVERDOSE Discharge Diagnosis: Prescription medication overdose, unintentional Activity: Per Instructions section Non-emergency contact: Primary Care Provider and Psychiatrist Call non-emergency contact if: you have any medication questions and your symptoms worsen Follow-up/Referrals: PCP,NO [Primary Care Provider] - Diet: Regular Addtl Attending Provider Instructions: Follow-up with your primary care provider within 1 week. Follow-up with your outpatient psychiatrist within 1 to 2 weeks. Recommend to stop taking Adderall, you may resume taking Viibryd. It is crucial that you do not take any prescribed medications that are not specifically prescribed for you. Also recommend not to drive until seen by your primary care doctor. Pending Studies at Discharge: Yes Studies:: Toxicology, full results pending Stand-Alone Forms: My [facility], Work/School Release (Inpt), Smoking Cessation Medications and DC Order Prescriptions: New acetaminophen 325 mg Tablet 650 mg PO Q4H PRN (Reason: pain) 5 Days RF: 0 Continued drospirenone-ethinyl estradiol [Gianvi (28)] 3-0.02 mg Tablet 1 tab PO QAM RF: 0 Viibryd 20 mg tablet 20 mg PO BID RF: 0 omeprazole 40 mg capsule,delayed release(DR/EC) 40 mg PO DAILY RF: 0 Discontinued dextroamphetamine-amphetamine [Adderall] 20 mg tablet 20 mg PO TID RF: 0 escitalopram oxalate [Lexapro] 10 mg tablet 10 mg PO UD RF: 0 Discharge Orders: Discharge Order (Routine); Ordered 11/26/19 Ordered By: Jose Juan Slater/Other Patient Handouts: Treating Drug Abuse and Addiction, [place] to Managing Stress Admission Data Admit Date/Time: 11/25/19 05:30 Attending Provider: Jose Juan Zaldivar Admit Provider: Harris Gardner Primary Care Provider: PCP,NO Other Providers: Harris Gardner ; Dannie Escobar ; Svetlana Blackman ; Keo Kaiser ; Davon Fisher ; Tyler Suero ; Millie Kiran ; Jone Nguyen ; Maliha Way ; Anna Andrade ; Nelda Lieberman ; Candelaria Hampton ; Chilango Youssef I. ; Alanis Leblanc ; Dionna Mccauley ; Pat Small ; Chapincito Shabazz S. Other Interventions: Discharge Summary Assessment (RN) Last Done: 11/26/19 12:14
[2019-11-26 22:39] LABS: Marijuana Quant, GCMS Urine 234 ng/mL (<5)
== END 2019-11-26 12:41 | disposition home or self-care (01) ==
LOC: 2S 02:18 → ED 02:18 → 2S 08:06